=== PATIENT | male | born 1950 | race Caucasian/White ===

== ENCOUNTER 2018-07-07 09:56 | Emergency (ER) | payer BC, MEDICARE ==
[2018-07-07] MEDS ORDERED: Diphtheria,Pertussis(Acell),Tetanus Vaccine 0.5 ML SDV IM ONE (10:22)
[2018-07-07] MEDS ORDERED: Bacitracin Oint 1 GM U/D Packet TOP ONE (10:22)
[2018-07-07] MEDS ORDERED: Lidocaine 1% with EPINEPHrine 1:100,000 50 ML MDV INFILT ONE (10:22)
--- NOTE | 2018-07-07 11:02 | EDM.PDOC ---
<Judit Weber - Last Filed: 07/07/18 11:24> ED HPI GENERAL MEDICAL PROBLEM - General Chief Complaint: Laceration Stated Complaint: LACEERATION ON RT HAND Time Seen by Provider: 07/07/18 10:30 Source of Information: Reports: Patient History Limitations: Reports: No Limitations - History of Present Illness INITIAL COMMENTS - FREE TEXT/NARRATIVE: Just prior to arrival, pt was working with a saw and had a board kick back on his right hand causing a laceration to the first joint of his index finger. A small superficial laceration to the base of the thumb was also incurred. Pt states that the injuries were from the board and not the saw. Pt denies use of blood thinners and is unsure of his last tetanus shot. Pain is minimal. Bleeding is contained and a clot is forming over the laceration site. Onset: Today, Sudden Onset Date: 07/07/18 Onset Time: 09:30 Duration: Hour(s): (just prior to arrival) Location: Reports: Upper Extremity, Right Quality: Reports: Throbbing Severity: Moderate Improves with: Reports: Rest Worsens with: Reports: Movement Context: Reports: Trauma Associated Symptoms: Reports: No Other Symptoms Treatments [employer]ER: Reports: Other (see below) (covered with bandaid and gauze) Right Finger-Index Pain Score (Numeric/FACES): 2 - Related Data Allergies Allergy/AdvReac Type Severity Reaction Status Date / Time No Known Allergies Allergy Verified 07/07/18 10:12 Home Meds: Home Meds Lisinopril/Hydrochlorothiazide [Lisinopril-Hctz 20-25 mg Tab] 07/07/18 [History ] atorvaSTATin [Lipitor] 07/07/18 [History] Past Medical History HEENT History: Reports: Hard of Hearing Cardiovascular History: Reports: High Cholesterol, Hypertension - Infectious Disease History Infectious Disease History: Reports: Chicken Pox, Measles, Mumps, Other (See Below) Other Infectious Disease History: lupus Social & Family History - Tobacco Use Smoking Status *Q: Never Smoker - Caffeine Use Caffeine Use: Reports: Coffee - Alcohol Use Number of Drinks Per Day: 3 - Recreational Drug Use Recreational Drug Use: No ED ROS GENERAL - Review of Systems Review Of Systems: ROS reveals no pertinent complaints other than HPI. Constitutional: Reports: No Symptoms Skin: Reports: Wound (right index finger) Neurological: Reports: No Symptoms ED EXAM, SKIN/RASH Exam: See Below Text/Narrative:: Pt has full range of motion and sensation of right index finger including distal to laceration site. A 2.5 cm laceration on the right index finger was anesthetized with 2 cc of 1% Marcaine with epi due to continued bleeding. The wound was cleansed and inspected without appreciation of foreign body or obvious source of bleeding. Exam Limited By: No Limitations General Appearance: Alert, WD/WN, No Apparent Distress Extremities: Normal Range of Motion, Normal Capillary Refill, Other (2.5 cm laceration of right index finger and 0.5 cm superficial laceration at base of right thumb) Neurological: Alert, Oriented, CN II-XII Intact, Normal Cognition Skin: Warm, Normal Color, No Rash Location, Skin: Lower Extremity, Right (lacerations as described above) ED SKIN PROCEDURES - Laceration/Wound Repair Right Digit - 2nd (Index) Lac/Wound length In cm: 2.5 Appearance: Subcutaneous Distal NVT: Neuro & Vascular Intact, No Tendon Injury Anesthetic Type: Local Local Anesthesia - Lidocaine (Xylocaine): 1% with EPI Local Anesthetic Volume: 2cc Skin Prep: Chlorhexidine (Hibiciens) Saline Irrigation (cc's): 50 Exploration/Debridement/Repair: Wound Explored, In a Bloodless Field, Explored to Base, No Foreign Material Found Closed with: Sutures Suture Size: 4-0 # of Sutures: 6 Suture Type: Prolene, Interrupted Course - Vital Signs Last Recorded V/S: Last Vital Signs Temp 96.2 F 07/07/18 10:19 Pulse 65 07/07/18 10:19 Resp 14 07/07/18 10:19 BP 161/79 H 07/07/18 10:19 Pulse Ox 99 07/07/18 10:19 - Orders/Labs/Meds Orders: Active Orders 24 hr Category Date Time Status Vaccines to be Administered [RC] PER UNIT ROUTINE Care 07/07/18 10:23 Active Meds: Medications Discontinued Medications Generic Name Dose Route Start Last Admin Trade Name Freq PRN Reason Stop Dose Admin Bacitracin 1 dose 07/07/18 10:22 07/07/18 10:27 Bacitracin Oint 1 Gm TOP 07/07/18 10:23 1 dose ONETIME ONE Administration Diphtheria/Tetanus/Acell Pertussis 0.5 ml 07/07/18 10:22 07/07/18 10:27 Adacel IM 07/07/18 10:23 0.5 ml .ONCE ONE Administration Lidocaine/Epinephrine 30 ml 07/07/18 10:22 07/07/18 10:27 Xylocaine 1% With Epinephrine 1:100,000 INFILT 07/07/18 10:23 30 ml ONETIME ONE Administration Departure - Departure Disposition: Home, Self-Care 01 Condition: Good Clinical Impression: Laceration - Discharge Information *PRESCRIPTION DRUG MONITORING PROGRAM REVIEWED*: No *COPY OF PRESCRIPTION DRUG MONITORING REPORT IN PATIENT MENDOZA: No Instructions: Laceration Care, Adult, [id number] Referrals: Vance Herrera MD [Primary Care Provider] - Forms: ED Department Discharge Care Plan Goals: Keep wound covered today. May be open to air starting tomorrow. Cover area if doing any thing that may cause the site to become dirty or potential for infection. Sutures may be removed next Saturday or Saturday by your primary care provider or you may return to the ER. Report any numbness or tingling that remains after the numbing medicine wears off. Report or return for any inability to move the finger or pain that is not relieved by over the counter medication. See handouts provided for the care of your wound. - My Orders Last 24 Hours: My Active Orders 07/07/18 10:23 Vaccines to be Administered [RC] PER UNIT ROUTINE - Assessment/Plan Last 24 Hours: My Active Orders 07/07/18 10:23 Vaccines to be Administered [RC] PER UNIT ROUTINE <Primitivo Ashley - Last Filed: 07/07/18 14:07> ED ROS GENERAL - Review of Systems Review Of Systems: See Below Departure - Departure Time of Disposition: 11:40
== END 2018-07-07 11:40 | disposition home or self-care (01) ==
LOC: JP.ED 09:56
DX: S61.210A Laceration without foreign body of right index finger without damage to nail, initial encounter (principal); S61.011A Laceration without foreign body of right thumb without damage to nail, initial encounter; Z23 Encounter for immunization; W45.8XXA Other foreign body or object entering through skin, initial encounter; W22.8XXA Striking against or struck by other objects, initial encounter; I10 Essential (primary) hypertension; E78.00 Pure hypercholesterolemia, unspecified; Z79.899 Other long term (current) drug therapy
CPT/HCPCS: 12001; 90471; 90715; 99282

== ENCOUNTER 2023-03-11 07:27 | Day surgery (SDC) | payer MEDICARE ==
[~2023-03-11 07:27] MED LIST: Propofol 200 MG/20 ML SDV ONE; fentaNYL 100 MCG/2 ML SDV ONE
[2023-03-11] MEDS ORDERED: Lactated Ringers 1,000 ML IV SCH (08:00)
== END 2023-03-11 10:02 | disposition home or self-care (01) ==
LOC: JP.SDS 07:27
PROVIDERS: ATTEND Student in an Organized Health Care Education/Training Program
DX: Z12.11 Encounter for screening for malignant neoplasm of colon (principal); K57.30 Diverticulosis of large intestine without perforation or abscess without bleeding; I10 Essential (primary) hypertension; E11.9 Type 2 diabetes mellitus without complications
CPT/HCPCS: J2704; J3010; J7120

== ENCOUNTER 2023-03-12 09:23 | Day surgery (SDC) | payer MEDICARE ==
[2023-03-12] MEDS ORDERED: Lactated Ringers 1,000 ML IV SCH (10:00)
[2023-03-12] MEDS: Dextrose 5%-Lactated Ringers 1,000 ML IV SCH (10:10)
[2023-03-12] MEDS ORDERED: Propofol 200 MG/20 ML SDV ONE (11:19)
[2023-03-12] MEDS ORDERED: fentaNYL 100 MCG/2 ML SDV ONE (11:19)
== END 2023-03-12 13:08 | disposition home or self-care (01) ==
LOC: JP.SDS 09:23
PROVIDERS: ATTEND Family Medicine
DX: Z12.11 Encounter for screening for malignant neoplasm of colon (principal); D12.4 Benign neoplasm of descending colon; I10 Essential (primary) hypertension; E78.5 Hyperlipidemia, unspecified
CPT/HCPCS: 45380; 88305; J2704; J3010; J7121